=== PATIENT | male | born 1980 | race Caucasian/White ===

== ENCOUNTER 2024-03-06 20:04 | Inpatient (IN) ==
[~2024-03-06 20:04] MED LIST: KETAMINE HCL INJ 50 MG/ML 10 ML VIAL IV ONE; ROCURONIUM BROMIDE 10 MG/ML 5 ML VIAL IV ONE
[2024-03-06] MEDS ORDERED: MIDAZOLAM HCL 5 MG/ML 1 ML VIAL IV STA (20:08)
[2024-03-06] MEDS: propofoL 1,000 MG/100 ML VIAL IV SCH (20:22)
[2024-03-06] MEDS: STAT IV Infusion **Titration per Protocol STA (20:25)
[2024-03-06] MEDS: RAPID SEQUENCE INDUCTION BAG ONE (20:25)
[2024-03-06] MEDS: MIDAZOLAM HCL 5 MG/ML 2ML VIAL IV STA (20:28)
[2024-03-06] MEDS: SODIUM CHLORIDE 0.9% 1,000 ML IV ONE (20:28)
[2024-03-06] MEDS: ONDANSETRON INJ 2 MG/ML 2 ML VIAL IV STA (20:28)
--- NOTE | 2024-03-06 20:31 | Emergency Department Note ---
Impression & Plan Acute alteration in mental status, Alcoholic intoxication, Acute respiratory distress, Vomiting ED Provider Note NAME: KRISTIN TUCKER AGE: 44 SEX: M : 1980 ARRIVES VIA: Ambulance INFORMANT: ALS ED PROVIDER(S): Guzman Archuleta DO CHIEF COMPLAINT: Altered mental status HPI: The patient is a 44-year-old male who presented to the emergency department for altered mental status. The patient reportedly was drinking alcohol for the last 2 days straight. He is also been using Ambien as well as stimulants. He was found obtunded. He vomited an unknown amount of times. The patient was hypoxic. The patient was placed on supplemental oxygen prior to arrival. The patient is unable to give any history at this time. The patient arrived to the emergency department by himself. ROS: See above HPI for pertinent positives & negatives. ROS was unable to obtain due to the patient's mental status. PAST MEDICAL HISTORY: See Below PAST SURGICAL HISTORY: See Below FAMILY HISTORY: See Below SOCIAL HISTORY: See Below HOME MEDICATIONS: See Below ALLERGIES: See Below VITALS: See Below PHYSICAL EXAMINATION: GENERAL: Patient is obtunded. He did not respond to verbal commands. EYES: The conjunctiva are injected bilaterally. Pupils are constricted bilaterally. EARS, NOSE, MOUTH AND THROAT: The nose is without any evidence of any deformity NECK: The neck is nontender and supple. RESPIRATORY: Shallow respirations are noted bilaterally. Scattered rhonchi were noted throughout. CARDIOVASCULAR: Tachycardic and regular heart sounds were noted to auscultation. GASTROINTESTINAL: The abdomen is soft. Abdomen is nontender. MUSCULOSKELETAL/EXTREMITIES: There is no evidence of gross deformity full range of motion is noted in the hips and shoulders. SKIN: There is no obvious evidence of any rash. There are no petechiae, pallor or cyanosis noted. NEUROLOGIC: The patient response to painful stimuli. The patient appears to be moving extremities but he does not follow commands at all. MEDICAL DECISION MAKING: The patient is a 44-year-old male who presented to the emergency department for altered mental status. The patient reportedly was drinking significant amounts of alcohol as well as using Ambien. There was a report that he might of been using stimulants as well. The patient arrived at the emergency department obtunded. He was vomiting. There is concern for airway protection. The patient was intubated in the emergency department in usual fashion. The patient was reevaluated multiple times. He was placed on sedation. I discussed his condition with the ICU as well as the on-call [facility]. They have agreed to evaluate the patient in the emergency department. Chest x-ray did not appear to be consistent with infiltrate or aspiration. Triage Nursing notes reviewed. Prior medical records reviewed Vital Signs: reviewed and remarkable for tachycardia and hypertension. Differential diagnosis: Infection, hypoglycemia, electrolyte abnormalities, overdose, toxicologic, cardiac sources, intracerebral event, neurologic, trauma, as well as other pathologies. ER treatment provided: See below Diagnostics interpreted by me: ECG: EKG was obtained in the emergency department. My interpretation is sinus tachycardia at 160 bpm. There is no PVCs noted. Nonspecific ST segment depressions were noted. No previous tracing was available. Cardiac Monitoring: An order was placed for continuous cardiac monitoring. The monitor shows a rate of 122 bpm with sinus tachycardia. Laboratory studies: As stated above and show below. Imaging studies: See below. Radiographic imaging was reviewed by myself Consultation(s): I discussed this case with Oscar who is on-call for the ICU. I discussed this case with Dr. Melchor who is on-call for the [facility] group. ED COURSE: Procedures: Endotracheal Intubation Indication altered mental status and airway protection. The patient was on 100% oxygen via NRB prior to the procedure. Suction, airway equipment, RSI drugs, respiratory equipment, and appropriate personnel were prepared prior to the initiation of the procedure. A time out was taken. Induction was performed with ketamine and rocuronium. After observing the clinical benefit of the medications, the airway was easily visualized utilizing a glide scope. A 7.5 size ETT tube was placed atraumatically to 24 cm using standard technique. The cuff inflated without signs of malfunction. There were bilateral breath sounds, positive colormetric change, no gastric sounds, a good capnography waveform, and post procedure pulse oximetry was 99%. Post intubation sedation and paralysis was administered using propofol. There were no complications. Critical Care: I have personally spent greater than 45 minutes of critical care time in the direct management of this patient. This includes bedside care, interpretation of diagnostic studies, and testing, discussion with consultants, patient, and family members, and other required patient management activities. This 45 minutes is in excess of all separately billable procedures. Past Med/Surg History Problem List (Updated 03/07/24 @ 00:32 by ERIC العلي) On mechanically assisted ventilation Vomiting (Acute) Acute respiratory distress (Acute) Alcoholic intoxication (Acute) Acute alteration in mental status (Acute) Social History Smoking Status: Unknown if ever smoked Second Hand Exposure: No; Do You Dip or Chew Tobacco: No; Tobacco Cessation Education Requested by Patient: No (pt intubated) Hx Alcohol Use: Yes Alcohol type: beer Hx Substance Use: No Preferred Language: Occitan Communication Ability: Effective Lacquer Sprayer Required: No Beliefs That Will Affect Care: None Current Living Situation: Other Current Living Situation Comment: pt unable to answer Other Information That Helps Us Care for You: No Feels Safe at Home: Yes Safety Concerns: Feels Safe At This Time Assistive Devices: None Allergies Allergies Allergy/AdvReac Type Severity Reaction Status Date / Time Unable to Assess Allergy Unverified 03/07/24 00:12 Home Meds Home Medications Medication Instructions Recorded Confirmed Unobtainable 03/06/24 03/06/24 Results & Data (ED) Vital Signs Vital Signs - 24 hr 03/06/24 20:08 03/06/24 20:09 03/06/24 20:13 Temperature 36.9 C Temperature Source Oral Pulse Rate 101 H 108 H 101 H Pulse Rate from SpO2 Sensor 107 H Pulse Rhythm Regular Pulse Strength Normal Respiratory Rate 16 18 Respiratory Effort / Characteristics Non-Labored Spontaneous Respiratory Depth Normal Respiratory Pattern Regular Blood Pressure 124/81 124/81 Blood Pressure Mean 95 95 Blood Pressure Position Lying Pulse Oximetry 99 99 Oxygen Delivery Method Nasal Cannula Nasal Cannula Oxygen Flow Rate 4 4 Fraction of Inspired Oxygen SaO2/FiO2 Ratio Sepsis Recent Fever Within 48 Hours No Sepsis New/Unexplained Change in Mental Status N/A Sepsis Action Taken by Nursing No Action Required End-Tidal CO2 Oxygen Flow Rate - Titration Pulse Oximetry Post Tiitration 03/06/24 20:16 03/06/24 20:16 03/06/24 20:18 Temperature Temperature Source Pulse Rate 118 H Pulse Rate from SpO2 Sensor 118 H Pulse Rhythm Pulse Strength Respiratory Rate 18 Respiratory Effort / Characteristics Respiratory Depth Respiratory Pattern Blood Pressure 166/132 H Blood Pressure Mean 143 Blood Pressure Position Pulse Oximetry 94 96 93 Oxygen Delivery Method Non-rebreather Nasal Cannula Non-rebreather Oxygen Flow Rate 15 4 Fraction of Inspired Oxygen SaO2/FiO2 Ratio Sepsis Recent Fever Within 48 Hours Sepsis New/Unexplained Change in Mental Status Sepsis Action Taken by Nursing End-Tidal CO2 Oxygen Flow Rate - Titration 15 Pulse Oximetry Post Tiitration 97 03/06/24 20:18 03/06/24 20:27 03/06/24 20:29 Temperature Temperature Source Pulse Rate 155 H 146 H 111 H Pulse Rate from SpO2 Sensor 155 H 146 H Pulse Rhythm Regular Pulse Strength Respiratory Rate 20 18 Respiratory Effort / Characteristics Respiratory Depth Respiratory Pattern Blood Pressure 210/136 H Blood Pressure Mean 160 Blood Pressure Position Pulse Oximetry 96 96 95 Oxygen Delivery Method Ambu-Bag Mechanical Vent Mechanical Vent Oxygen Flow Rate Fraction of Inspired Oxygen 50 50 SaO2/FiO2 Ratio 190 Sepsis Recent Fever Within 48 Hours Sepsis New/Unexplained Change in Mental Status Sepsis Action Taken by Nursing End-Tidal CO2 Oxygen Flow Rate - Titration Pulse Oximetry Post Tiitration 03/06/24 20:30 03/06/24 20:36 03/06/24 20:36 Temperature Temperature Source Pulse Rate 110 H 146 H 107 H Pulse Rate from SpO2 Sensor 110 H 107 H Pulse Rhythm Pulse Strength Respiratory Rate 18 22 18 Respiratory Effort / Characteristics Respiratory Depth Respiratory Pattern Blood Pressure 145/107 H 138/99 Blood Pressure Mean 119 112 Blood Pressure Position Pulse Oximetry 95 96 95 Oxygen Delivery Method Mechanical Vent Mechanical Vent Oxygen Flow Rate Fraction of Inspired Oxygen 50 50 50 SaO2/FiO2 Ratio Sepsis Recent Fever Within 48 Hours Sepsis New/Unexplained Change in Mental Status Sepsis Action Taken by Nursing End-Tidal CO2 40 41 40 Oxygen Flow Rate - Titration Pulse Oximetry Post Tiitration 03/06/24 20:50 03/06/24 21:00 03/06/24 21:10 Temperature Temperature Source Pulse Rate 99 H 102 H 95 H Pulse Rate from SpO2 Sensor 98 H 102 H 95 H Pulse Rhythm Pulse Strength Respiratory Rate 18 18 18 Respiratory Effort / Characteristics Respiratory Depth Respiratory Pattern Blood Pressure 141/103 H 153/103 H 151/100 H Blood Pressure Mean 115 119 117 Blood Pressure Position Pulse Oximetry 96 95 98 Oxygen Delivery Method Mechanical Vent Mechanical Vent Mechanical Vent Oxygen Flow Rate Fraction of Inspired Oxygen 50 50 50 SaO2/FiO2 Ratio Sepsis Recent Fever Within 48 Hours Sepsis New/Unexplained Change in Mental Status Sepsis Action Taken by Nursing End-Tidal CO2 43 40 44 Oxygen Flow Rate - Titration Pulse Oximetry Post Tiitration 03/06/24 21:21 03/06/24 21:30 03/06/24 21:40 Temperature Temperature Source Pulse Rate 94 H 98 H 100 H Pulse Rate from SpO2 Sensor 95 H 99 H 100 H Pulse Rhythm Pulse Strength Respiratory Rate 18 18 18 Respiratory Effort / Characteristics Respiratory Depth Respiratory Pattern Blood Pressure 150/100 H 153/109 H Blood Pressure Mean 116 123 Blood Pressure Position Pulse Oximetry 98 97 95 Oxygen Delivery Method Mechanical Vent Mechanical Vent Mechanical Vent Oxygen Flow Rate Fraction of Inspired Oxygen 50 50 50 SaO2/FiO2 Ratio Sepsis Recent Fever Within 48 Hours Sepsis New/Unexplained Change in Mental Status Sepsis Action Taken by Nursing End-Tidal CO2 45 47 46 Oxygen Flow Rate - Titration Pulse Oximetry Post Tiitration 03/06/24 21:42 03/06/24 21:50 03/06/24 22:00 Temperature Temperature Source Pulse Rate 108 H 92 H 93 H Pulse Rate from SpO2 Sensor 108 H 92 H 93 H Pulse Rhythm Pulse Strength Respiratory Rate 21 18 18 Respiratory Effort / Characteristics Respiratory Depth Respiratory Pattern Blood Pressure 128/83 120/81 Blood Pressure Mean 98 94 Blood Pressure Position Pulse Oximetry 97 96 95 Oxygen Delivery Method Mechanical Vent Mechanical Vent Mechanical Vent Oxygen Flow Rate Fraction of Inspired Oxygen 50 50 50 SaO2/FiO2 Ratio Sepsis Recent Fever Within 48 Hours Sepsis New/Unexplained Change in Mental Status Sepsis Action Taken by Nursing End-Tidal CO2 46 44 43 Oxygen Flow Rate - Titration Pulse Oximetry Post Tiitration 03/06/24 22:00 03/06/24 22:10 03/06/24 22:15 Temperature Temperature Source Pulse Rate 93 H 90 91 H Pulse Rate from SpO2 Sensor 93 H 90 91 H Pulse Rhythm Pulse Strength Respiratory Rate 18 18 18 Respiratory Effort / Characteristics Respiratory Depth Respiratory Pattern Blood Pressure 120/80 Blood Pressure Mean 93 Blood Pressure Position Pulse Oximetry 95 94 94 Oxygen Delivery Method Mechanical Vent Mechanical Vent Mechanical Vent Oxygen Flow Rate Fraction of Inspired Oxygen 50 50 50 SaO2/FiO2 Ratio Sepsis Recent Fever Within 48 Hours Sepsis New/Unexplained Change in Mental Status Sepsis Action Taken by Nursing End-Tidal CO2 43 42 42 Oxygen Flow Rate - Titration Pulse Oximetry Post Tiitration 03/06/24 22:21 03/06/24 22:30 Temperature Temperature Source Pulse Rate 91 H 90 Pulse Rate from SpO2 Sensor 91 H 90 Pulse Rhythm Pulse Strength Respiratory Rate 18 18 Respiratory Effort / Characteristics Respiratory Depth Respiratory Pattern Blood Pressure 114/81 120/80 Blood Pressure Mean 92 93 Blood Pressure Position Pulse Oximetry 94 95 Oxygen Delivery Method Mechanical Vent Mechanical Vent Oxygen Flow Rate Fraction of Inspired Oxygen 50 50 SaO2/FiO2 Ratio Sepsis Recent Fever Within 48 Hours Sepsis New/Unexplained Change in Mental Status Sepsis Action Taken by Nursing End-Tidal CO2 41 41 Oxygen Flow Rate - Titration Pulse Oximetry Post Tiitration Home Medications Current Medication List: was personally reviewed by me Laboratory Data Attestation: I reviewed the patient's lab results. 03/06/24 20:09 03/06/24 20:09 Lab Results 03/06/24 03/06/24 03/06/24 Range/Units 20:09 20:38 21:29 WBC 7.95 (4.8-10.8) K/ul RBC 5.85 (4.70-6.10) M/uL Hgb 17.9 (14.0-18.0) g/dl Hct 49.7 (42.0-52.0) % MCV 85.0 (80.0-100.0) fL MCH 30.6 (25.0-34.0) pg MCHC 36.0 (32.0-36.0) g/dL RDW Std Deviation 35.9 L (36.4-46.3) fL RDW Coeff of Guido 11.7 (11.5-14.5) % Plt Count 252 (130-400) K/uL MPV 10.2 (9.4-12.4) fL Immature Gran % (Auto) 0.8 % Neut % (Auto) 45.3 % Lymph % (Auto) 44.7 % [place] % (Auto) 6.7 % Eos % (Auto) 1.6 % Baso % (Auto) 0.9 % Neut # (Auto) 3.61 (1.40-6.50) K/uL Lymph # (Auto) 3.55 H (1.20-3.40) K/uL [place] # (Auto) 0.53 (0.11-0.59) K/uL Eos # (Auto) 0.13 (0.00-0.50) K/uL Baso # (Auto) 0.07 (0.00-0.20) K/uL Immature Gran # (Auto) 0.06 (0.01-0.20) K/uL PT 10.5 (9.0-12.0) Seconds INR 1.0 (0.9-1.1) APTT 21 (21-31) Seconds PTT Ratio 0.8 VBG pH Cancelled 7.32 L VBG pCO2 Cancelled 57 H VBG pO2 Cancelled 35 VBG HCO3 Cancelled 29 VBG O2 Saturation Cancelled < 60.0 VBG Base Excess Cancelled 2.0 Barometric Pressure Cancelled Sodium 142 (136-145) mmol/L Potassium 3.7 (3.5-5.1) mmol/L Chloride 104 (98-107) mmol/L Carbon Dioxide 27 (21-32) mmol/L Anion Gap 11 (3-11) BUN 10 (6-23) mg/dl Creatinine 0.95 (0.6-1.4) mg/dl Est Cr Clr Drug Dosing 124.4 ml/min eGFR 101.85 BUN/Creatinine Ratio 10.5 (10-20) Glucose 117 H (70-99(Fasting)) mg/dl Calcium 9.7 (8.6-10.3) mg/dl Magnesium 2.1 (1.7-2.4) mg/dl Total Bilirubin 0.4 (0.2-1.0) mg/dl AST 28 (13-39) U/L ALT 26 (7-52) U/L Alkaline Phosphatase 68 (34-104) U/L Total Creatine Kinase 322 H (30-223) U/L Troponin I High Sens 4.0 (0-20) pg/ml Total Protein 7.5 (6.0-8.3) gm/dl Albumin 4.9 (3.4-5.0) gm/dl Globulin 2.6 (2.5-4.0) gm/dl Albumin/Globulin Ratio 1.9 (0.9-2) Lipase 37 (11-82) U/L Urine Color Yellow Urine Appearance Clear (Clear) Urine pH 5.5 (4.5-7.5) Ur Specific [place] 1.006 (1.000-1.030) Urine Protein Negative (Negative) Urine Glucose (UA) Negative (Negative) Urine Ketones Negative (Negative) Urine Blood Negative (Negative) Urine Nitrite Negative (Negative) Urine Bilirubin Negative (Negative) Urine Urobilinogen Negative (Negative) Ur Leukocyte Esterase Negative (Negative) Salicylates < 3.0 L (3.0-30) mg/dl Urine Opiates Screen Neg (Neg) Ur Methadone, Qual Neg (Neg) Urine Fentanyl Screen Neg (Neg) Acetaminophen < 3 L (10-30) ug/ml Urine Barbiturates Neg (Neg) Ur Phencyclidine (PCP) Neg (Neg) U Amphetamin/Meth Scrn Neg (Neg) MDMA (Ecstasy) Screen Neg (Neg) U Benzodiazepines Scrn Neg (Neg) Ur Cocaine Metabolite Neg (Neg) U Marijuana (THC) Screen Neg (Neg) Ethyl Alcohol mg/dL 343.3 H (<10.0) mg/dl Administered Medications Propofol (Diprivan) 1,000 mg in 100 mls @ 26.352 mls/hr IV .Q3H48M [facility]; Protocol Stop: 03/09/24 20:14 Last Titration: 03/07/24 00:32 Dose: 40 mcg/kg/min, 26.4 mls/hr Documented By: Titration: 03/07/24 00:16 Dose: 35 mcg/kg/min, 23.1 mls/hr Documented By: Admin: 03/07/24 00:10 Dose: 30 mcg/kg/min, 19.8 mls/hr Documented By: DEBBIE Co-signed By: SANDY Titration: 03/07/24 00:10 Dose: Infused Documented By: DEBBIE Co-signed By: SANDY Titration: 03/07/24 00:07 Dose: 30 mcg/kg/min, 19.8 mls/hr Documented By: Titration: 03/06/24 21:20 Dose: 25 mcg/kg/min, 16.5 mls/hr Documented By: Admin: 03/06/24 20:22 Dose: 20 mcg/kg/min, 13.2 mls/hr Documented By: DESTIN Co-signed By: BARBARA Lactated Ringer's (Lr) 1,000 mls @ 80 mls/hr IV .[id number] ONE Stop: 03/07/24 11:34 Last Admin: 03/06/24 23:30 Dose: 80 mls/hr Documented By: DESTIN Miscellaneous (Icu Protocol For Hyperglycemia) 1 each N/A Q6 [facility] Stop: 03/09/24 00:00 Last Admin: 03/07/24 00:32 Dose: 1 each Documented By: DEBBIE Propofol (Propofol Bolus From Bag) 20 mg IV Q5M PRN PRN Reason: Sedation Stop: 03/09/24 20:07 Last Admin: 03/06/24 21:39 Dose: 20 mg Documented By: DESTNI Co-signed By: GARY Admin: 03/06/24 21:19 Dose: 20 mg Documented By: DESTIN Co-signed By: CESARIO Admin: 03/06/24 20:46 Dose: 20 mg Documented By: DESTIN Co-signed By: CESARIO Discontinued Medications Fentanyl Citrate (Fentanyl Citrate Pf 100 Mcg/2 Ml Vial) 100 mcg IV NOW STA Stop: 03/06/24 21:35 Last Admin: 03/06/24 21:42 Dose: 100 mcg Documented By: DESTIN Sodium Chloride (Nss) 1,000 mls @ 999 mls/hr IV .Q1H1M ONE Stop: 03/06/24 21:08 Last Infusion: 03/06/24 21:30 Dose: Infused Documented By: Admin: 03/06/24 20:28 Dose: 999 mls/hr Documented By: DESTIN Ampicillin Sodium/Sulbactam Sodium (Unasyn) 3,000 mg in 100 mls @ 200 mls/hr IV NOW STA Stop: 03/06/24 22:26 Last Infusion: 03/06/24 22:56 Dose: Infused Documented By: Admin: 03/06/24 22:23 Dose: 200 mls/hr Documented By: DESTIN Thiamine HCl 100 mg/ Syringe 10 mls @ 2 mls/min IV NOW STA Stop: 03/06/24 22:06 Last Admin: 03/06/24 22:20 Dose: 2 mls/min Documented By: DESTIN Midazolam HCl (Midazolam Hcl 5 Mg/Ml 2ml Vial) 4 mg IV NOW STA Stop: 03/06/24 20:23 Last Admin: 03/06/24 20:28 Dose: 4 mg Documented By: DESTIN Midazolam HCl (Midazolam Hcl 5 Mg/Ml 1 Ml Vial) 4 mg IV NOW STA Stop: 03/06/24 21:35 Last Admin: 03/06/24 21:40 Dose: 4 mg Documented By: DESTIN Mccallum (Rapid Sequence Induction Bag) Confirm Administered Dose 1 each N/A .STK-MED ONE Stop: 03/06/24 20:01 Last Admin: 03/06/24 20:25 Dose: 1 each Documented By: DESTIN Mccallum (Stat Iv Infusion Titration Per Protocol) 1 each N/A NOW STA Stop: 03/06/24 20:09 Last Admin: 03/06/24 20:25 Dose: 1 each Documented By: DESTIN Ondansetron HCl (Ondansetron Inj 2 Mg/Ml 2 Ml Vial) 4 mg IV NOW STA Stop: 03/06/24 20:09 Last Admin: 03/06/24 20:28 Dose: Not Given Documented By: DESTIN Imaging Data Attestation: I personally reviewed and interpreted this imaging study as follows: My Impression: 1 view chest x-ray was obtained in the emergency department. My interpretation is no free air or definite infiltrate, endotracheal tube was in proper position, final report below. CT the brain was obtained in the emergency department. My interpretation is no intracranial hemorrhage or mass effect, final report below. Radiologist's Impression: Chest X-Ray 03/06/24 20:08 Exam(s): XR CXR 1 VIEW EXAM: XR Chest, 1 View CLINICAL HISTORY: Reason for exam: ams. TECHNIQUE: Frontal view of the chest. COMPARISON: No relevant prior studies available. FINDINGS: There is an endotracheal tube in place approximately 6 cm above the nico. There is an NG tube overlying the esophagus with the distal tip in the cardia of the stomach. Lungs: Mild to moderate peribronchial thickening of the central and lower lobe bronchi with increased interstitial opacities. No consolidation. Pleural space: Unremarkable. No pneumothorax. Heart: Cardiomegaly. Mediastinum: Unremarkable. Normal mediastinal contour. Bones/joints: Unremarkable. No acute fracture. IMPRESSION: Findings concerning for bronchitis with pneumonitis, which may be of infectious or inflammatory etiologies. No consolidation or pleural effusion. Cardiomegaly without evidence of CHF. Tubes and lines as above. Electronically signed by: Shreya Scruggs MD 03/07/24 00:[address] 03/06/24 20:08 Exam(s): CT HEAD Without Contrast EXAM: CT Head Without Intravenous Contrast CLINICAL HISTORY: Reason for exam: ams. TECHNIQUE: Axial computed tomography images of the head/brain without intravenous contrast. CTDI is 36 mGy and DLP is 624 mGy-cm. Automated exposure control was utilized for the study. A dose lowering technique was utilized adhering to the principles of ALARA. COMPARISON: No relevant prior studies available. FINDINGS: Brain: Unremarkable. No hemorrhage. No significant white matter disease. No edema. Ventricles: Unremarkable. No ventriculomegaly. Bones/joints: Unremarkable. No acute fracture. Soft tissues: Unremarkable. Sinuses: Unremarkable as visualized. No acute sinusitis. Mastoid air cells: Unremarkable as visualized. No mastoid effusion. IMPRESSION: No evidence of acute intracranial pathology. Electronically signed by: Shreya Scruggs MD 03/06/24 23:32 PM Discharge Plan Visit Data Chief Complaint: Alcohol Intoxication Stated Complaint: ALCOHOL OVERDOSE, UNRESPONSIVE ED Provider: Guzman Archuleta Discharge Problem: Acute alteration in mental status, Alcoholic intoxication, Acute respiratory distress, Vomiting Patient Disposition: Admitted As Inpatient Discharge Instructions Interventions: ED Discharge Assessment Last Done: 03/06/24 22:54 Discharge Problem: Alcoholic intoxication Qualifiers: Complication of substance-induced condition: with unspecified complication Q ualified Code(s): F10.929 - Alcohol use, unspecified with intoxication, unspecified Vomiting Qualifiers: Vomiting type: unspecified Nausea presence: unspecified Qualified Code(s): R 11.10 - Vomiting, unspecified
[2024-03-06] MEDS: PROPOFOL BOLUS FROM BAG IV PRN (20:46)
[2024-03-06 21:02] LABS: Appearance Urine Clear (Clear); Bilirubin Urine Negative (Negative); Blood Urine Negative (Negative); Color Urine Yellow; Glucose Urine UA Negative (Negative); Ketones Urine Negative (Negative); Leukocyte Esterase Urine Negative (Negative); Nitrite Urine Negative (Negative); Protein Urine Negative (Negative); Specific Gravity Urine 1.006 (1.000-1.030); Urobilinogen Urine Negative (Negative); pH Urine 5.5 (4.5-7.5)
[2024-03-06 21:17] LABS: Albumin Globulin Ratio 1.9 (0.9-2); Albumin Level 4.9 gm/dl (3.4-5.0); BUN Creatinine Ratio 10.5 (10-20); Bilirubin,Total 0.4 mg/dl (0.2-1.0); Calcium 9.7 mg/dl (8.6-10.3); Creatinine Clr Calc Pharmacy 124.4 ml/min; Globulin 2.6 gm/dl (2.5-4.0); Magnesium 2.1 mg/dl (1.7-2.4); Potassium 3.7 mmol/L (3.5-5.1); Total Protein 7.5 gm/dl (6.0-8.3)
[2024-03-06 21:21] LABS: Basophils # (auto) 0.07 K/uL (0.00-0.20); Basophils % (auto) 0.9 %; Eosinophils # (auto) 0.13 K/uL (0.00-0.50); Eosinophils % (auto) 1.6 %; Hematocrit (blood only) 49.7 % (42.0-52.0); Hemoglobin 17.9 g/dl (14.0-18.0); Immature Granulocytes # (auto) 0.06 K/uL (0.01-0.20); Immature Granulocytes % (auto) 0.8 %; Lymphocytes # (auto) 3.55 K/uL (1.20-3.40); Lymphocytes % (auto) 44.7 %; Mean Corpuscular Hemoglobin 30.6 pg (25.0-34.0); Mean Platelet Volume 10.2 fL (9.4-12.4); Monocytes # (auto) 0.53 K/uL (0.11-0.59); Monocytes % (auto) 6.7 %; Neutrophils # (auto) 3.61 K/uL (1.40-6.50); Neutrophils % (auto) 45.3 %; Platelet Count 252 K/uL (130-400); RDW Coefficient of Variation 11.7 % (11.5-14.5); RDW Standard Deviation 35.9 fL (36.4-46.3); Red Blood Count 5.85 M/uL (4.70-6.10); White Blood Count 7.95 K/ul (4.8-10.8)
[2024-03-06 21:26] LABS: Acetaminophen < 3 ug/ml (10-30); Salicylate < 3.0 mg/dl (3.0-30)
[2024-03-06 21:29] LABS: Partial Thromboplastin Ratio 0.8; Partial Thromboplastin Time 21 Seconds (21-31); Prothrombin Time 10.5 Seconds (9.0-12.0)
[2024-03-06] MEDS: MIDAZOLAM HCL 5 MG/ML 1 ML VIAL IV STA (21:40)
[2024-03-06] MEDS: fentaNYL citrate PF 100 MCG/2 ML VIAL IV STA (21:42)
[2024-03-06 21:53] LABS: HCO3 VBG 29 mmol/L; Oxygen Saturation VBG < 60.0 %; PCO2 VBG 57 mmHg (38-50); PO2 VBG 35 mmHg; pH VBG 7.32 (7.36-7.41)
[2024-03-06 22:06] LABS: Amphetamines+Metham, Urine Neg (Neg); Barbiturates, Urine Neg (Neg); Benzodiazepine, Urine Neg (Neg); Cocaine, Urine Neg (Neg); Fentanyl, Urine Neg (Neg); MDMA (Ecstacy), Urine Neg (Neg); Marijuana, Urine Neg (Neg); Methadone, Urine Neg (Neg); Opiate, Urine Neg (Neg); Phencyclidine, Urine Neg (Neg)
[2024-03-06] MEDS: THIAMINE HCL 100 MG in SYRINGE 9 ML IV STA (22:20)
[2024-03-06] MEDS: AMPICILLIN/SULBACTAM SOD 3,000 MG/100 ML BAG IV STA (22:23)
--- NOTE | 2024-03-06 22:28 | History & Physical Report ---
Date of Service March 06, 2024 Assessment & Plan (1) Respiratory failure with hypercapnia: Plan: Multifactorial: Alcohol intoxication Possible aspiration pneumonitis Hyperglycemia rule out DM ICU Vent management Recheck VBG Unasyn for aspiration pneumonitis DVT prophylaxis. Lovenox subcu GI prophylaxis. H2 sunday while on the vent Full code Patient friend requesting updates from providers. Mr. Vahid Gonzales, contact #[phone]. Patient friend does not have contact information for patient's family. Patient was scheduled to fly out from [facility] to return to [facility] tomorrow afternoon. Total critical care time was 40 minutes. Text document was generated using Edam[employer] voice recognition software. It may contain grammatical or spelling errors. Kindly contact undersigned for clarification of any documentation item in question. History of Present Illness Chief Complaint: Altered mental status Primary Care Provider: NO PCP History obtained from ED provider, patient friend, and records. Limited history from patient secondary to intubated state. Patient is a resident of [facility] who is in town this weekend with friends to watch the football game. Patient has been drinking a lot of alcohol with his buddies since arriving in [facility] yesterday. Patient friend unaware of alcohol abuse history. Reported Ambien and stimulant use. Tonight, patient noted to be obtunded. Subsequent emesis and hypoxemia. Patient brought to ER for evaluation. Transient hypoxemia with concern for aspiration as per ED provider Patient subsequently intubated. 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 Allergies Allergy/AdvReac Type Severity Reaction Status Date / Time Unable to Assess Allergy Unverified 03/07/24 00:12 Home Medications Medication Instructions Recorded Confirmed Type Unobtainable 03/06/24 03/06/24 History Past Med/Surg History Problem List (Updated 03/07/24 @ 03:16 by Seth Berger MD) Respiratory failure with hypercapnia On mechanically assisted ventilation Vomiting (Acute) Acute respiratory distress (Acute) Alcoholic intoxication (Acute) Acute alteration in mental status (Acute) Social History Smoking Status: Unknown if ever smoked Second Hand Exposure: No; Do You Dip or Chew Tobacco: No; Tobacco Cessation Education Requested by Patient: No (pt intubated) Hx Alcohol Use: Yes Alcohol type: beer Hx Substance Use: No Preferred Language: Faroese Communication Ability: Effective Access Rn Required: No Beliefs That Will Affect Care: None Current Living Situation: Other Current Living Situation Comment: pt unable to answer Other Information That Helps Us Care for You: No Feels Safe at Home: Yes Safety Concerns: Feels Safe At This Time Assistive Devices: None Review of Systems Review of Systems: Could not be reliably obtained secondary to intubated state Physical Exam Physical Exam: GENERAL: Sedated, intubated, obese, no respiratory distress SKIN: Normal color, warm HEENT: Alopecia, pink palpebral conjunctivae, no ptosis, dry buccal mucosa, ET in place NECK : Supple, no tenderness CHEST : Decreased breath sounds, no tenderness HEART : RRR, no obvious murmurs ABDOMEN: Some distention, nontender EXTREMITIES : No LE swelling/tenderness, no other conspicuous deformities noted NEUROLOGIC : Sedated, no facial asymmetry, no other gross focality Results & Data Results & Data Vital Signs (Past 12 Hours) Vital Signs Temp Pulse Resp BP Pulse Ox O2 Del Method O2 Flow Rate 03/06/24 22:15 91 H 18 94 Mechanical Vent 03/06/24 22:10 90 18 120/80 94 Mechanical Vent 03/06/24 22:00 93 H 18 95 Mechanical Vent 03/06/24 22:00 93 H 18 120/81 95 Mechanical Vent 03/06/24 21:50 92 H 18 128/83 96 Mechanical Vent 03/06/24 21:42 108 H 21 97 Mechanical Vent 03/06/24 21:40 100 H 18 153/109 H 95 Mechanical Vent 03/06/24 21:30 98 H 18 150/100 H 97 Mechanical Vent 03/06/24 21:21 94 H 18 98 Mechanical Vent 03/06/24 21:10 95 H 18 151/100 H 98 Mechanical Vent 03/06/24 21:00 102 H 18 153/103 H 95 Mechanical Vent 03/06/24 20:50 99 H 18 141/103 H 96 Mechanical Vent 03/06/24 20:36 107 H 18 138/99 95 Mechanical Vent 03/06/24 20:36 146 H 22 96 03/06/24 20:30 110 H 18 145/107 H 95 Mechanical Vent 03/06/24 20:29 111 H 18 95 Mechanical Vent 03/06/24 20:27 146 H 96 Mechanical Vent 03/06/24 20:18 155 H 20 210/136 H 96 Ambu-Bag 03/06/24 20:18 93 Nasal Cannula, Non-rebreather 4 03/06/24 20:16 118 H 18 166/132 H 96 Non-rebreather 15 03/06/24 20:16 94 03/06/24 20:13 101 H 03/06/24 20:09 108 H 18 124/81 99 Nasal Cannula 4 03/06/24 20:08 36.9 C 101 H 16 124/81 99 Nasal Cannula 4 FiO2 03/06/24 22:15 50 03/06/24 22:10 50 03/06/24 22:00 50 03/06/24 22:00 50 03/06/24 21:50 50 03/06/24 21:42 50 03/06/24 21:40 50 03/06/24 21:30 50 03/06/24 21:21 50 03/06/24 21:10 50 03/06/24 21:00 50 03/06/24 20:50 50 03/06/24 20:36 50 03/06/24 20:36 50 03/06/24 20:30 50 03/06/24 20:29 50 03/06/24 20:27 50 03/06/24 20:18 03/06/24 20:18 03/06/24 20:16 03/06/24 20:16 03/06/24 20:13 03/06/24 20:09 03/06/24 20:08 Laboratory Results Laboratory Results WBC 7.95 K/ul (4.8-10.8) 03/06/24 20:09 RBC 5.85 M/uL (4.70-6.10) 03/06/24 20:09 Hgb 17.9 g/dl (14.0-18.0) 03/06/24 20:09 Hct 49.7 % (42.0-52.0) 03/06/24 20:09 MCV 85.0 fL (80.0-100.0) 03/06/24 20:09 MCH 30.6 pg (25.0-34.0) 03/06/24 20:09 MCHC 36.0 g/dL (32.0-36.0) 03/06/24 20:09 RDW Std Deviation 35.9 fL (36.4-46.3) L 03/06/24 20: RDW Coeff of Guido 11.7 % (11.5-14.5) 03/06/24 20: Plt Count 252 K/uL (130-400) 03/06/24 20:09 MPV 10.2 fL (9.4-12.4) 03/06/24 20:09 Immature Gran % (Auto) 0.8 % 03/06/24 20: Neut % (Auto) 45.3 % 03/06/24 20:09 Lymph % (Auto) 44.7 % 03/06/24 20:09 [place] % (Auto) 6.7 % 03/06/24 20:09 Eos % (Auto) 1.6 % 03/06/24 20:09 Baso % (Auto) 0.9 % 03/06/24 20:09 Neut # (Auto) 3.61 K/uL (1.40-6.50) 03/06/24 20:09 Lymph # (Auto) 3.55 K/uL (1.20-3.40) H 03/06/24 20:09 [place] # (Auto) 0.53 K/uL (0.11-0.59) 03/06/24 20:09 Eos # (Auto) 0.13 K/uL (0.00-0.50) 03/06/24 20:09 Baso # (Auto) 0.07 K/uL (0.00-0.20) 03/06/24 20:09 Immature Gran # (Auto) 0.06 K/uL (0.01-0.20) 03/06/24 20:09 PT 10.5 Seconds (9.0-12.0) 03/06/24 20:09 INR 1.0 (0.9-1.1) 03/06/24 20: APTT 21 Seconds (21-31) 03/06/24 20: PTT Ratio 0.8 03/06/24 20:09 VBG pH 7.32 (7.36-7.41) L 03/06/24 21:29 VBG pCO2 57 mmHg (38-50) H 03/06/24 21:29 VBG pO2 35 mmHg 03/06/24 21:29 VBG HCO3 29 mmol/L 03/06/24 21:29 VBG O2 Saturation < 60.0 % 03/06/24 21:29 VBG Base Excess 2.0 mEq/L 03/06/24 21:29 Barometric Pressure Cancelled 03/06/24 20:38 Sodium 142 mmol/L (136-145) 03/06/24 20:09 Potassium 3.7 mmol/L (3.5-5.1) 03/06/24 20:09 Chloride 104 mmol/L (98-107) 03/06/24 20:09 Carbon Dioxide 27 mmol/L (21-32) 03/06/24 20:09 Anion Gap 11 (3-11) 03/06/24 20:09 BUN 10 mg/dl (6-23) 03/06/24 20:09 Creatinine 0.95 mg/dl (0.6-1.4) 03/06/24 20:09 Est Cr Clr Drug Dosing 124.4 ml/min 03/06/24 20:09 eGFR 101.85 03/06/24 20:09 BUN/Creatinine Ratio 10.5 (10-20) 03/06/24 20:09 Glucose 117 mg/dl (70-99(Fasting)) H 03/06/24 20:09 Calcium 9.7 mg/dl (8.6-10.3) 03/06/24 20:09 Magnesium 2.1 mg/dl (1.7-2.4) 03/06/24 20:09 Total Bilirubin 0.4 mg/dl (0.2-1.0) 03/06/24 20:09 AST 28 U/L (13-39) 03/06/24 20:09 ALT 26 U/L (7-52) 03/06/24 20:09 Alkaline Phosphatase 68 U/L (34-104) 03/06/24 20:09 Total Creatine Kinase 322 U/L (30-223) H 03/06/24 20:09 Troponin I High Sens 4.0 pg/ml (0-20) 03/06/24 20:09 Total Protein 7.5 gm/dl (6.0-8.3) 03/06/24 20:09 Albumin 4.9 gm/dl (3.4-5.0) 03/06/24 20:09 Globulin 2.6 gm/dl (2.5-4.0) 03/06/24 20:09 Albumin/Globulin Ratio 1.9 (0.9-2) 03/06/24 20:09 Lipase 37 U/L (11-82) 03/06/24 20:09 Urine Color Yellow 03/06/24 20:09 Urine Appearance Clear (Clear) 03/06/24 20:09 Urine pH 5.5 (4.5-7.5) 03/06/24 20:09 Ur Specific [place] 1.006 (1.000-1.030) 03/06/24 20:09 Urine Protein Negative (Negative) 03/06/24 20:09 Urine Glucose (UA) Negative (Negative) 03/06/24 20:09 Urine Ketones Negative (Negative) 03/06/24 20:09 Urine Blood Negative (Negative) 03/06/24 20:09 Urine Nitrite Negative (Negative) 03/06/24 20:09 Urine Bilirubin Negative (Negative) 03/06/24 20:09 Urine Urobilinogen Negative (Negative) 03/06/24 20:09 Ur Leukocyte Esterase Negative (Negative) 03/06/24 20:09 Salicylates < 3.0 mg/dl (3.0-30) L 03/06/24 20:09 Urine Opiates Screen Neg (Neg) 03/06/24 20:09 Ur Methadone, Qual Neg (Neg) 03/06/24 20:09 Urine Fentanyl Screen Neg (Neg) 03/06/24 20:09 Acetaminophen < 3 ug/ml (10-30) L 03/06/24 20:09 Urine Barbiturates Neg (Neg) 03/06/24 20:09 Ur Phencyclidine (PCP) Neg (Neg) 03/06/24 20:09 U Amphetamin/Meth Scrn Neg (Neg) 03/06/24 20:09 MDMA (Ecstasy) Screen Neg (Neg) 03/06/24 20:09 U Benzodiazepines Scrn Neg (Neg) 03/06/24 20:09 Ur Cocaine Metabolite Neg (Neg) 03/06/24 20:09 U Marijuana (THC) Screen Neg (Neg) 03/06/24 20:09 Ethyl Alcohol mg/dL 343.3 mg/dl (<10.0) H 03/06/24 20:09 Diagnostic Findings Chest x-ray as per my interpretation cardiomegaly, interstitial infiltrates EKG as per my interpretation : rate 160, sinus tachycardia, LAD, LAFB, upslop ing ST depression anterolateral leads
[2024-03-06] MEDS: LACTATED RINGER'S 1,000 ML IV ONE (23:30)
--- NOTE | 2024-03-06 23:33 | CT Scan Report ---
Exam(s): CT HEAD Without Contrast EXAM: CT Head Without Intravenous Contrast CLINICAL HISTORY: Reason for exam: ams. TECHNIQUE: Axial computed tomography images of the head/brain without intravenous contrast. CTDI is 36 mGy and DLP is 624 mGy-cm. Automated exposure control was utilized for the study. A dose lowering technique was utilized adhering to the principles of ALARA. COMPARISON: No relevant prior studies available. FINDINGS: Brain: Unremarkable. No hemorrhage. No significant white matter disease. No edema. Ventricles: Unremarkable. No ventriculomegaly. Bones/joints: Unremarkable. No acute fracture. Soft tissues: Unremarkable. Sinuses: Unremarkable as visualized. No acute sinusitis. Mastoid air cells: Unremarkable as visualized. No mastoid effusion. IMPRESSION: No evidence of acute intracranial pathology. Electronically signed by: Shreya Scurggs MD 03/06/24 23:32 PM
[2024-03-07 00:13] LABS: Base Excess VBG 3.8 mEq/L; HCO3 VBG 31 mmol/L; Oxygen Saturation VBG 61.3 %; PCO2 VBG 56 mmHg (38-50); PO2 VBG 65 mmHg; pH VBG 7.35 (7.36-7.41)
--- NOTE | 2024-03-07 00:26 | XRay Report ---
Exam(s): XR CXR 1 VIEW EXAM: XR Chest, 1 View CLINICAL HISTORY: Reason for exam: ams. TECHNIQUE: Frontal view of the chest. COMPARISON: No relevant prior studies available. FINDINGS: There is an endotracheal tube in place approximately 6 cm above the nico. There is an NG tube overlying the esophagus with the distal tip in the cardia of the stomach. Lungs: Mild to moderate peribronchial thickening of the central and lower lobe bronchi with increased interstitial opacities. No consolidation. Pleural space: Unremarkable. No pneumothorax. Heart: Cardiomegaly. Mediastinum: Unremarkable. Normal mediastinal contour. Bones/joints: Unremarkable. No acute fracture. IMPRESSION: Findings concerning for bronchitis with pneumonitis, which may be of infectious or inflammatory etiologies. No consolidation or pleural effusion. Cardiomegaly without evidence of CHF. Tubes and lines as above. Electronically signed by: Shreya Scruggs MD 03/07/24 00:25 AM
[2024-03-07] MEDS: ICU Protocol for HYPERglycemia SCH (00:32)
--- NOTE | 2024-03-07 00:32 | Critical Care Consultation ---
Date of Consultation March 06, 2024 Assessment & Plan (1) Alcoholic intoxication: Reason Critically Ill: 44-year-old male presents to the ICU following emergent intubation in the ER due to altered mental status and vomiting, with patient not protecting airway. Patient appears to be intoxicated with alcohol Neuro - AMSlikely due to alcohol intoxication. Patient was emergently intubated due to compromised airway. CT head negative for acute intracranial findings. UDS negative although EMS did report patient had possibly taken Ambien and stimulants throughout the day. Acetaminophen and salicylates negative. Will continue to monitor and continue with supportive care Cardiac - Currently hemodynamically stable, normal sinus rhythm. Continuous monitor on telemetry Respiratory - Mechanical ventilationdue to vomiting with compromised airway. Unsure if patient may have aspirated as he was reportedly hypoxic following intubation. No significant hypoxia or hypercapnia at this time. Will continue with mechanical ventilation until Patient becomes more arousable. Continuous end- tidal CO2 and pulse ox monitoring. Will obtain chest x-ray and ABG in a.m. GI - N.p.o. for now RENAL/LYTES - Creatinine within normal limits. Monitor routine BMPs and replete electrolytes as indicated Rhabdomyolysis Mild. Slightly elevated CPK, likely due to EtOH/possible drug ingestion. Continue with IV fluids and trend for now - Foleystrict I's and O's ENDO - Currently euglycemic. ICU hyperglycemic protocol HEME - H&H stable, monitor routine CBC ID - Continue with empiric Unasyn for pulmonary coverage following possible aspiration. Trend fever curve LINES/IV ACCESS - Peripheral IVs DVT PROPHYLAXIS - SCDs I have personally spent 42 minutes of critical care time in the direct management of this patient. This is a life/limb threatening event. This includes time spent evaluating patient, direct bedside care, chart review, placing orders, interpretation of diagnostic studies, discussion with consultants, patient, and family members, as well as other required patient management activities. This time is exclusive of all separately billable procedures, and teaching time and separate from and in addition to any other critical care service time. Thank you for allowing us to participate in the care of this patient. Please refer to my attending physician's documentation for any further recommendations. (2) Acute respiratory distress: (3) Acute alteration in mental status: (4) On mechanically assisted ventilation: History of Present Illness Attending Physician: Liudmila Araya MD History of Present Illness Patient is a 44-year-old male who presented to the emergency department Via EMS with altered mental status, and required intubation. Apparently [place] is from [place] was in town for the [place] football game, and was reported to have taken stimulants, Ambien, and alcohol throughout the day. He was unable to give any history on arrival to the emergency department as he was obtunded and by himself. He was noted to be vomiting, and did not appear to be protecting his airway so he was emergently intubated. He did undergo CT head which was negative for acute intracranial findings. Acetaminophen and salicylates were negative. He did have significantly elevated blood alcohol but drug screen otherwise unremarkable. He now presents to the ICU for further management at this time. Allergies Allergy/AdvReac Type Severity Reaction Status Date / Time Unable to Assess Allergy Unverified 03/07/24 00:12 Home Medications Medication Instructions Recorded Confirmed Type Unobtainable 03/06/24 03/06/24 History Patient History Social History Smoking Status: Unknown if ever smoked Second Hand Exposure: No; Do You Dip or Chew Tobacco: No; Tobacco Cessation Education Requested by Patient: No (pt intubated) Hx Alcohol Use: Yes Alcohol type: beer Hx Substance Use: No Preferred Language: Bhutanese Communication Ability: Effective Blend Technician Required: No Beliefs That Will Affect Care: None Current Living Situation: Other Current Living Situation Comment: pt unable to answer Other Information That Helps Us Care for You: No Feels Safe at Home: Yes Safety Concerns: Feels Safe At This Time Assistive Devices: None Review of Systems Review of Systems: Unobtainable due to cognitive status and Unobtainable due to endotracheal tube Physical Exam Constitutional: average body habitus and + mechanically ventilated Eyes: PERRL, conjunctivae normal, anicteric sclerae ENMT: external ear and nose normal, oropharynx normal Neck: trachea midline, no thyromegaly Respiratory: normal respiratory effort, lungs clear to auscultation Cardiovascular: RRR, no murmur, no edema Heart Sounds: normal S1 and normal S2; no murmur Extremities: no edema Gastrointestinal (Abdomen): normal bowel sounds, soft, nontender, no hepatosplenomegaly Musculoskeletal: Head/Neck/Chest: normocephalic Extremities: extremities normal to inspection Skin: no rashes, warm and dry Neurologic: Exam limited due to sedation. PERRLA. Cough gag corneal intact Psychiatric: Unable to assess due to sedation/ET tube Genitourinary: Indwelling Mars catheter present, urine yellow clear Results & Data Results & Data Vital Signs (Past 12 Hours) Vital Signs Temp Pulse Pulse Resp BP BP Pulse Ox 03/07/24 00:09 122 H 20 100 03/07/24 00:03 36.9 C 110 H 20 148/92 H 100 03/06/24 23:30 88 18 138/89 99 03/06/24 23:21 85 18 99 03/06/24 23:20 87 18 127/93 98 03/06/24 23:10 87 18 143/95 H 97 03/06/24 23:00 91 H 18 119/82 96 03/06/24 22:54 36.9 C 03/06/24 22:51 90 18 94 03/06/24 22:50 91 H 18 118/77 94 03/06/24 22:40 91 H 18 120/79 95 03/06/24 22:30 90 18 120/80 95 03/06/24 22:21 91 H 18 114/81 94 03/06/24 22:15 91 H 18 94 03/06/24 22:10 90 18 120/80 94 03/06/24 22:00 93 H 18 95 03/06/24 22:00 93 H 18 120/81 95 03/06/24 21:50 92 H 18 128/83 96 03/06/24 21:42 108 H 21 97 03/06/24 21:40 100 H 18 153/109 H 95 03/06/24 21:30 98 H 18 150/100 H 97 03/06/24 21:21 94 H 18 98 03/06/24 21:10 95 H 18 151/100 H 98 03/06/24 21:00 102 H 18 153/103 H 95 03/06/24 20:50 99 H 18 141/103 H 96 03/06/24 20:36 107 H 18 138/99 95 03/06/24 20:36 146 H 22 96 03/06/24 20:30 110 H 18 145/107 H 95 03/06/24 20:29 111 H 18 95 03/06/24 20:27 146 H 96 03/06/24 20:18 155 H 20 210/136 H 96 03/06/24 20:18 93 03/06/24 20:16 118 H 18 166/132 H 96 03/06/24 20:16 94 03/06/24 20:13 101 H 03/06/24 20:09 108 H 18 124/81 99 03/06/24 20:08 36.9 C 101 H 16 124/81 99 O2 Del Method O2 Flow Rate FiO2 03/07/24 00:09 40 03/07/24 00:03 Mechanical Vent 03/06/24 23:30 Mechanical Vent 50 03/06/24 23:21 Mechanical Vent 50 03/06/24 23:20 Mechanical Vent 50 03/06/24 23:10 Mechanical Vent 50 03/06/24 23:00 Mechanical Vent 50 03/06/24 22:54 03/06/24 22:51 Mechanical Vent 50 03/06/24 22:50 Mechanical Vent 50 03/06/24 22:40 Mechanical Vent 50 03/06/24 22:30 Mechanical Vent 50 03/06/24 22:21 Mechanical Vent 50 03/06/24 22:15 Mechanical Vent 50 03/06/24 22:10 Mechanical Vent 50 03/06/24 22:00 Mechanical Vent 50 03/06/24 22:00 Mechanical Vent 50 03/06/24 21:50 Mechanical Vent 50 03/06/24 21:42 Mechanical Vent 50 03/06/24 21:40 Mechanical Vent 50 03/06/24 21:30 Mechanical Vent 50 03/06/24 21:21 Mechanical Vent 50 03/06/24 21:10 Mechanical Vent 50 03/06/24 21:00 Mechanical Vent 50 03/06/24 20:50 Mechanical Vent 50 03/06/24 20:36 Mechanical Vent 50 03/06/24 20:36 50 03/06/24 20:30 Mechanical Vent 50 03/06/24 20:29 Mechanical Vent 50 03/06/24 20:27 Mechanical Vent 50 03/06/24 20:18 Ambu-Bag 03/06/24 20:18 Nasal Cannula, Non-rebreather 4 03/06/24 20:16 Non-rebreather 15 03/06/24 20:16 03/06/24 20:13 03/06/24 20:09 Nasal Cannula 4 03/06/24 20:08 Nasal Cannula 4 Coding Level of Care Code 22678 CRITICAL CARE 1ST 30-74M Diagnoses Alcoholic intoxication F10.929 Complication of substance-induced condition: with unspecified complication Acute respiratory distress R06.03 Acute alteration in mental status R41.82 On mechanically assisted ventilation Z99.11 (1) Alcoholic intoxication Complication of substance-induced condition: with unspecified complication Qualified Code(s): F10.929 - Alcohol use, unspecified with intoxication, unspecified
--- NOTE | 2024-03-07 01:31 | XRay Report ---
Exam(s): XR KUB EXAM: XR Abdomen, 1 View CLINICAL HISTORY: OG verification. TECHNIQUE: Frontal supine view of the abdomen/pelvis. COMPARISON: No relevant prior studies available. FINDINGS: Orogastric tube tip in left upper quadrant approximately 10 cm beyond the level of the esophageal junction. IMPRESSION: Orogastric tube tip in the stomach. Electronically signed by: Alexei Camarillo M.D. 03/07/24 01:30 AM
[2024-03-07] MEDS ORDERED: STAT IV Infusion **Titration per Protocol STA (03:39)
[2024-03-07] MEDS ORDERED: fentaNYL BOLUS from BAG IV PRN (03:39)
[2024-03-07] MEDS: fentaNYL citrate 2,500 MCG/250 ML BAG IV SCH (03:52)
[2024-03-07 04:18] LABS: Basophils # (auto) 0.06 K/uL (0.00-0.20); Basophils % (auto) 0.6 %; Eosinophils # (auto) 0.03 K/uL (0.00-0.50); Eosinophils % (auto) 0.3 %; Hematocrit (blood only) 46.9 % (42.0-52.0); Hemoglobin 16.6 g/dl (14.0-18.0); Immature Granulocytes # (auto) 0.06 K/uL (0.01-0.20); Immature Granulocytes % (auto) 0.6 %; Lymphocytes # (auto) 2.83 K/uL (1.20-3.40); Lymphocytes % (auto) 27.4 %; Mean Corpuscular Hemoglobin 30.3 pg (25.0-34.0); Mean Corpuscular Hgb Conc 35.4 g/dL (32.0-36.0); Mean Corpuscular Volume 85.7 fL (80.0-100.0); Mean Platelet Volume 10.2 fL (9.4-12.4); Monocytes # (auto) 0.68 K/uL (0.11-0.59); Monocytes % (auto) 6.6 %; Neutrophils # (auto) 6.65 K/uL (1.40-6.50); Neutrophils % (auto) 64.5 %; Platelet Count 243 K/uL (130-400); RDW Coefficient of Variation 11.8 % (11.5-14.5); Red Blood Count 5.47 M/uL (4.70-6.10); White Blood Count 10.31 K/ul (4.8-10.8)
[2024-03-07 04:32] LABS: BUN Creatinine Ratio 10.3 (10-20); Creatinine Clr Calc Pharmacy 133.7 ml/min; Magnesium 1.9 mg/dl (1.7-2.4); Phosphorus 4.3 mg/dl (2.5-4.9)
[2024-03-07 05:13] LABS: iSTAT Allen Test Pass; iSTAT Art Bld Gas pCO2 Correct 45 mmHg (35-46); iSTAT Art Bld Gas pH Corrected 7.368 (7.35-7.45); iSTAT Arterial Blood Gas HCO3 26 meg/L (19-24); iSTAT Arterial Blood Gas pCO2 44 mmHg (35-46); iSTAT Arterial Blood Gas pH 7.38 (7.35-7.45); iSTAT Arterial Blood Gas pO2 100 mmHg (80-95); iSTAT Arterial Blood Gas pO2 C 104; iSTAT Carbon Dioxide 27 mmol/L (24-31); iSTAT FiO2 30 %; iSTAT Hematocrit 47 % (42-52); iSTAT Potassium 3.9 mmol/L (3.3-5.0); iSTAT Sample Type Arterial; iSTAT Site L Brachial; iSTAT Sodium 142 mmol/L (135-144); iSTAT SpO2 96
[2024-03-07] MEDS: AMPICILLIN/SULBACTAM SOD 3,000 MG/100 ML BAG IV SCH (06:02)
--- NOTE | 2024-03-07 07:31 | Hospitalist Progress Note ---
Date of Service March 07, 2024 Assessment & Plan (1) Respiratory failure with hypercapnia: Plan: Mr. Chen is a 44 year old gentleman with unknown medical history at this time who presented to ED on 03/06 due to acute encephalopathy after alcohol intoxication. Patient intubated for airway protection and concern for aspiration pneumonia. Patient afebrile, extubated, no leukocytosis noted, no respiratory distress. #Acute resp failure 2/2 inability to maintain airway due to encephalopathy #Mechanical ventilation, now extubated concern for possible aspiration 2/2 intractable vomiting reported, no signs of notable hypoxia/hypercapnia Intubated for airway protection 03/07 Remains in ICU for vent management Unasyn empirically for aspiration--discontinue given no WBC/fevers/distress Extubation protocol per ICU, likely down grade this afternoon #Acute Alcohol withdrawal #Alcohol intoxication on admission hypertensive and tachycardic, notable intake of 3-4 beers at minimum daily with episodic binge reported Agrees to Gabapentin taper Ativan prn AWSS Continue on tele #Prior tobacco use Nicotine patch ordered Discuss patient not to be discharged today, but will consider in am contingent on IV requirements for ativan given desire to "drive self to airport" DVT [facility] Admission and Anticipated Discharge Date Admission Date: March 06, 2024 Subjective Initially evaluated while intubated--then once more at bedside when extubated Patient reports feeling frustrated....he states he "took a pill [he] thought was adderall" then only drank beer He does note nightly drinking 3-4 beers a night and then sometimes an 18pack over the weekends. He cannot quantify the amount he drank yesterday but doesnt remember it being "that much." He denies any other medical history, he reports previously smoking over a year ago but uses patches now He denies any other supplements, illicit uses outside of "occasional pills" or prescribed medications Physical Exam Constitutional: WD/WN, vitals as above Respiratory: normal respiratory effort, lungs clear to auscultation Cardiovascular: tachycardic, sinus on tele Gastrointestinal (Abdomen): normal bowel sounds, soft, nontender, no hepatosplenomegaly Results & Data Results & Data Vital Signs (Past 12 Hours) Vital Signs Temp Pulse Pulse Resp BP BP Pulse Ox 03/07/24 06:12 37.5 C 87 16 110/68 97 03/07/24 05:09 37.5 C 95 H 18 104/62 96 03/07/24 04:18 37.5 C 100 H 18 122/71 95 03/07/24 04:00 03/07/24 03:55 116 H 24 96 03/07/24 03:00 37.2 C 104 H 18 122/69 95 03/07/24 02:00 37.0 C 99 H 18 125/70 94 03/07/24 01:00 36.8 C 100 H 18 117/70 95 03/07/24 00:09 36.5 C 127 H 20 148/92 H 100 03/07/24 00:09 122 H 20 100 03/07/24 00:03 36.9 C 110 H 20 148/92 H 100 03/07/24 00:00 03/07/24 00:00 03/07/24 00:00 128 H 03/06/24 23:54 03/06/24 23:30 88 18 138/89 99 03/06/24 23:21 85 18 99 03/06/24 23:20 87 18 127/93 98 03/06/24 23:10 87 18 143/95 H 97 03/06/24 23:00 91 H 18 119/82 96 03/06/24 22:54 36.9 C 03/06/24 22:51 90 18 94 03/06/24 22:50 91 H 18 118/77 94 03/06/24 22:40 91 H 18 120/79 95 03/06/24 22:30 90 18 120/80 95 03/06/24 22:21 91 H 18 114/81 94 03/06/24 22:15 91 H 18 94 03/06/24 22:10 90 18 120/80 94 03/06/24 22:00 93 H 18 95 03/06/24 22:00 93 H 18 120/81 95 03/06/24 21:50 92 H 18 128/83 96 03/06/24 21:42 108 H 21 97 03/06/24 21:40 100 H 18 153/109 H 95 03/06/24 21:30 98 H 18 150/100 H 97 03/06/24 21:21 94 H 18 98 03/06/24 21:10 95 H 18 151/100 H 98 03/06/24 21:00 102 H 18 153/103 H 95 03/06/24 20:50 99 H 18 141/103 H 96 03/06/24 20:36 107 H 18 138/99 95 03/06/24 20:36 146 H 22 96 03/06/24 20:30 110 H 18 145/107 H 95 03/06/24 20:29 111 H 18 95 03/06/24 20:27 146 H 96 03/06/24 20:18 155 H 20 210/136 H 96 03/06/24 20:18 93 03/06/24 20:16 118 H 18 166/132 H 96 03/06/24 20:16 94 03/06/24 20:13 101 H 03/06/24 20:09 108 H 18 124/81 99 03/06/24 20:08 36.9 C 101 H 16 124/81 99 O2 Del Method O2 Del Method O2 Flow Rate O2 Flow Rate FiO2 03/07/24 06:12 03/07/24 05:09 03/07/24 04:18 03/07/24 04:00 40 03/07/24 03:55 30 03/07/24 03:00 03/07/24 02:00 03/07/24 01:00 03/07/24 00:09 03/07/24 00:09 40 03/07/24 00:03 Mechanical Vent 03/07/24 00:00 Mechanical Vent 30 03/07/24 00:00 30 03/07/24 00:00 03/06/24 23:54 Mechanical Vent 30 03/06/24 23:30 Mechanical Vent 50 03/06/24 23:21 Mechanical Vent 50 03/06/24 23:20 Mechanical Vent 50 03/06/24 23:10 Mechanical Vent 50 03/06/24 23:00 Mechanical Vent 50 03/06/24 22:54 03/06/24 22:51 Mechanical Vent 50 03/06/24 22:50 Mechanical Vent 50 03/06/24 22:40 Mechanical Vent 50 03/06/24 22:30 Mechanical Vent 50 03/06/24 22:21 Mechanical Vent 50 03/06/24 22:15 Mechanical Vent 50 03/06/24 22:10 Mechanical Vent 50 03/06/24 22:00 Mechanical Vent 50 03/06/24 22:00 Mechanical Vent 50 03/06/24 21:50 Mechanical Vent 50 03/06/24 21:42 Mechanical Vent 50 03/06/24 21:40 Mechanical Vent 50 03/06/24 21:30 Mechanical Vent 50 03/06/24 21:21 Mechanical Vent 50 03/06/24 21:10 Mechanical Vent 50 03/06/24 21:00 Mechanical Vent 50 03/06/24 20:50 Mechanical Vent 50 03/06/24 20:36 Mechanical Vent 50 03/06/24 20:36 50 03/06/24 20:30 Mechanical Vent 50 03/06/24 20:29 Mechanical Vent 50 03/06/24 20:27 Mechanical Vent 50 03/06/24 20:18 Ambu-Bag 03/06/24 20:18 Nasal Cannula, Non-rebreather 4 03/06/24 20:16 Non-rebreather 15 03/06/24 20:16 03/06/24 20:13 03/06/24 20:09 Nasal Cannula 4 03/06/24 20:08 Nasal Cannula 4 Laboratory Results Short CBC 03/06/24 03/07/24 Range/Units 20:09 03:49 WBC 7.95 10.31 (4.8-10.8) K/ul Hgb 17.9 16.6 (14.0-18.0) g/dl Hct 49.7 46.9 (42.0-52.0) % Plt Count 252 243 (130-400) K/uL BMP 03/06/24 03/07/24 20:09 03:49 Sodium 142 141 Potassium 3.7 4.0 Chloride 104 105 Carbon Dioxide 27 25 BUN 10 9 Creatinine 0.95 0.87 Glucose 117 H 99 Calcium 9.7 9.0 Cardiac Enzymes 03/06/24 03/07/24 Range/Units 20:09 03:49 Total Creatine Kinase 322 H 239 H (30-223) U/L Liver Function 03/06/24 Range/Units 20:09 Total Bilirubin 0.4 (0.2-1.0) mg/dl AST 28 (13-39) U/L ALT 26 (7-52) U/L Alkaline Phosphatase 68 (34-104) U/L Albumin 4.9 (3.4-5.0) gm/dl Urine 03/06/24 Range/Units 20:09 Urine Color Yellow Urine Appearance Clear (Clear) Urine pH 5.5 (4.5-7.5) Ur Specific Stanton 1.006 (1.000-1.030) Urine Protein Negative (Negative) Urine Glucose (UA) Negative (Negative) Medications Administered Home Medications Medication Instructions Recorded Confirmed Last Taken Unobtainable 03/06/24 03/06/24 Unknown Active Medications Generic Name Dose Route Start Last Admin Trade Name Freq PRN Reason Stop Dose Admin Propofol 1,000 mg in 100 mls @ 32.94 mls/hr 03/06/24 20:15 03/07/24 06:53 Diprivan IV 03/09/24 20:14 50 mcg/kg/min .Q3H3M SHAINA 32.9 mls/hr Titration Protocol 50 MCG/KG/MIN Lactated Ringer's 1,000 mls @ 80 mls/hr 03/06/24 23:05 03/06/24 23:30 Lr IV 03/07/24 11:34 80 mls/hr .[id number] ONE Administration Ampicillin Sodium/Sulbactam Sodium 3,000 mg in 100 mls @ 200 mls/hr 03/07/24 05:00 03/07/24 06:51 Unasyn IV 03/12/24 04:59 Infused Q6H SHAINA Infusion Fentanyl Citrate 2,500 mcg in 250 mls @ 7.5 mls/hr 03/07/24 03:45 03/07/24 06:53 Fentanyl Citrate IV 03/21/24 03:44 75 mcg/hr .[id number] SHAINA 7.5 mls/hr Titration Protocol 75 MCG/HR Miscellaneous 1 each 03/07/24 00:00 03/07/24 06:29 Icu Protocol For Hyperglycemia N/A 03/09/24 00:00 1 each Q6 SHAINA Administration Propofol 20 mg 03/06/24 20:08 03/06/24 21:39 Propofol Bolus From Bag IV 03/09/24 20:07 20 mg Q5M PRN Administration Sedation
[2024-03-07 07:35] LABS: Estimated Average Glucose 88 mg/dl; Hemoglobin A1C 4.7 % (4.5-5.6)
--- NOTE | 2024-03-07 07:41 | XRay Report ---
EXAM: XR chest 1V portable CLINICAL HISTORY: resp failure tgb INPATIENT TECHNIQUE: X-ray image of the chest obtained in 1 frontal projection. COMPARISON: No prior studies available for comparison. FINDINGS: Pulmonary Parenchyma: Prominent bilateral parahilar markings. No evidence of consolidation, collapse, or focal opacities. No pulmonary nodules identified. No evidence of pleural effusion or pleural thickening. Heart and Mediastinum: Heart size aappears enlarged. No mediastinal widening or masses. No hilar or mediastinal lymphadenopathy. Bony Thorax: Bony thorax appears intact without fractures or deformities. Soft Tissues: Soft tissues overlying the chest wall are unremarkable. ETT with tip ~5.6 cm above nico. IMPRESSION: 1. Prominent bilateral parahilar markings likely congestion. 2. Cardiomegaly. 3. ETT with tip ~5.6 cm above nico. Electronically signed by Sam Pang 03-07-2024 07:40 AM
--- NOTE | 2024-03-07 07:55 | Critical Care Progress Note ---
Date of Service March 07, 2024 Assessment & Plan (1) Alcoholic intoxication: Plan: . (2) Acute respiratory distress: (3) Acute alteration in mental status: (4) On mechanically assisted ventilation: Plan Reason Critically Ill: 44-year-old male presents to the ICU following emergent intubation in the ER due to altered mental status and vomiting, with patient not protecting airway. Patient appears to be intoxicated with alcohol Neuro - -- Metabolic encephalopathy Likely secondary to alcohol intoxication CT head negative for acute intracranial findings. UDS negative although EMS did report patient had possibly taken Ambien and stimulants throughout the day. Acetaminophen and salicylates negative --History of heavy alcohol use Drinks 4-6 beers on a daily basis 18 packs on the weekend Cardiac - Currently hemodynamically stable, normal sinus rhythm. Continuous monitor on telemetry Respiratory - Mechanical ventilation For airway protection Keep RASS -1 Daily sedation holidays and SBT's Chlorhexidine mouthwash GI - N.p.o. for now RENAL/LYTES - -- Monitor BUNs/creatinine Avoid nephrotoxic medication Rhabdomyolysis Mildly elevated CPK Continue with IV fluids - Foleystrict I's and O's ENDO - ICU hyperglycemia protocol HEME - H&H stable, monitor routine CBC ID - Continue with empiric Unasyn for pulmonary coverage following possible aspiration. Trend fever curve --Prophylaxis VTE: Lovenox GI: Pepcid Lines: Peripheral Diet: N.p.o. Plan: In/out: +603, urine output 875 Patient is spiking fever, start him on Tylenol There is a possibility he might have aspirated, will recommend to give amoxicillin/clavulanate acid for total of 7 days on discharge Continue with Zosyn for the time being Magnesium being replaced Trial of extubation today CIWA protocol given history of heavy alcohol use Case discussed with primary team I have personally spent 38 minutes of critical care time in the direct management of this patient. This is a life/limb threatening event. This includes time spent evaluating patient, direct bedside care, chart review, placing orders, interpretation of diagnostic studies, discussion with consultants, patient, and family members, as well as other required patient management activities. This time is exclusive of all separately billable procedures, and teaching time and separate from and in addition to any other critical care service time. Thank you for allowing us to participate in the care of this patient. Please refer to my attending physician's documentation for any further recommendations Admission and Anticipated Discharge Date Admission Date: March 06, 2024 Subjective Patient seen and examined at bedside. No acute distress Was on fentanyl 100 and propofol 50 at the time of examination He was RASS -1, breathing over the way Asking to remove the tube Denied any headache, no chest pain, no abdominal pain Spiking low-grade fever Review of Systems 2 Review of Systems: All systems reviewed & are unremarkable except as noted in Subjective and Unobtainable due to endotracheal tube Physical Exam 2 Physical Exam: Constitutional: No acute distress HEENT: EOMI, PERRLA Respiratory system: Decreased air entry bilaterally, no wheeze, no rhonchi, mild crackles bilateral lower lobes CVS: S1-S2 positive, no murmurs or gallops Abdomen: Soft, nontender, nondistended, positive bowel sounds x4 Extremities: +2 pulses bilaterally radialis/ dorsalis pedis, no cyanosis, no edema Neuro: RASS -1, moving all extremities and answering the questions appropriately Psych: Unable to assess G/U: Positive Mars Skin: no rashes, warm and dry Lymphatic: no cervical or axillary lymphadenopathy Results & Data Results & Data Vital Signs (Past 12 Hours) Vital Signs Temp Pulse Pulse Resp BP BP Pulse Ox 03/07/24 07:24 97 H 18 96 03/07/24 06:12 37.5 C 87 16 110/68 97 03/07/24 05:09 37.5 C 95 H 18 104/62 96 03/07/24 04:18 37.5 C 100 H 18 122/71 95 03/07/24 04:00 03/07/24 03:55 116 H 24 96 03/07/24 03:00 37.2 C 104 H 18 122/69 95 03/07/24 02:00 37.0 C 99 H 18 125/70 94 03/07/24 01:00 36.8 C 100 H 18 117/70 95 03/07/24 00:09 36.5 C 127 H 20 148/92 H 100 03/07/24 00:09 122 H 20 100 03/07/24 00:03 36.9 C 110 H 20 148/92 H 100 03/07/24 00:00 03/07/24 00:00 03/07/24 00:00 128 H 03/06/24 23:54 03/06/24 23:30 88 18 138/89 99 03/06/24 23:21 85 18 99 03/06/24 23:20 87 18 127/93 98 03/06/24 23:10 87 18 143/95 H 97 03/06/24 23:00 91 H 18 119/82 96 03/06/24 22:54 36.9 C 03/06/24 22:51 90 18 94 03/06/24 22:50 91 H 18 118/77 94 03/06/24 22:40 91 H 18 120/79 95 03/06/24 22:30 90 18 120/80 95 03/06/24 22:21 91 H 18 114/81 94 03/06/24 22:15 91 H 18 94 03/06/24 22:10 90 18 120/80 94 03/06/24 22:00 93 H 18 95 03/06/24 22:00 93 H 18 120/81 95 03/06/24 21:50 92 H 18 128/83 96 03/06/24 21:42 108 H 21 97 03/06/24 21:40 100 H 18 153/109 H 95 03/06/24 21:30 98 H 18 150/100 H 97 03/06/24 21:21 94 H 18 98 03/06/24 21:10 95 H 18 151/100 H 98 03/06/24 21:00 102 H 18 153/103 H 95 03/06/24 20:50 99 H 18 141/103 H 96 03/06/24 20:36 107 H 18 138/99 95 03/06/24 20:36 146 H 22 96 03/06/24 20:30 110 H 18 145/107 H 95 03/06/24 20:29 111 H 18 95 03/06/24 20:27 146 H 96 03/06/24 20:18 155 H 20 210/136 H 96 03/06/24 20:18 93 03/06/24 20:16 118 H 18 166/132 H 96 03/06/24 20:16 94 03/06/24 20:13 101 H 03/06/24 20:09 108 H 18 124/81 99 03/06/24 20:08 36.9 C 101 H 16 124/81 99 O2 Del Method O2 Del Method O2 Flow Rate O2 Flow Rate FiO2 03/07/24 07:24 30 03/07/24 06:12 03/07/24 05:09 03/07/24 04:18 03/07/24 04:00 40 03/07/24 03:55 30 03/07/24 03:00 03/07/24 02:00 03/07/24 01:00 03/07/24 00:09 03/07/24 00:09 40 03/07/24 00:03 Mechanical Vent 03/07/24 00:00 Mechanical Vent 30 03/07/24 00:00 30 03/07/24 00:00 03/06/24 23:54 Mechanical Vent 30 03/06/24 23:30 Mechanical Vent 50 03/06/24 23:21 Mechanical Vent 50 03/06/24 23:20 Mechanical Vent 50 03/06/24 23:10 Mechanical Vent 50 03/06/24 23:00 Mechanical Vent 50 03/06/24 22:54 03/06/24 22:51 Mechanical Vent 50 03/06/24 22:50 Mechanical Vent 50 03/06/24 22:40 Mechanical Vent 50 03/06/24 22:30 Mechanical Vent 50 03/06/24 22:21 Mechanical Vent 50 03/06/24 22:15 Mechanical Vent 50 03/06/24 22:10 Mechanical Vent 50 03/06/24 22:00 Mechanical Vent 50 03/06/24 22:00 Mechanical Vent 50 03/06/24 21:50 Mechanical Vent 50 03/06/24 21:42 Mechanical Vent 50 03/06/24 21:40 Mechanical Vent 50 03/06/24 21:30 Mechanical Vent 50 03/06/24 21:21 Mechanical Vent 50 03/06/24 21:10 Mechanical Vent 50 03/06/24 21:00 Mechanical Vent 50 03/06/24 20:50 Mechanical Vent 50 03/06/24 20:36 Mechanical Vent 50 03/06/24 20:36 50 03/06/24 20:30 Mechanical Vent 50 03/06/24 20:29 Mechanical Vent 50 03/06/24 20:27 Mechanical Vent 50 03/06/24 20:18 Ambu-Bag 03/06/24 20:18 Nasal Cannula, Non-rebreather 4 03/06/24 20:16 Non-rebreather 15 03/06/24 20:16 03/06/24 20:13 03/06/24 20:09 Nasal Cannula 4 03/06/24 20:08 Nasal Cannula 4 Laboratory Results 03/07/24 03:49 03/07/24 03:49 Coding Level of Care Code 42914 CRITICAL CARE 1ST 30-74M Diagnoses Alcoholic intoxication F10.929 Complication of substance-induced condition: with unspecified complication Acute respiratory distress R06.03 Acute alteration in mental status R41.82 On mechanically assisted ventilation Z99.11 (1) Alcoholic intoxication Complication of substance-induced condition: with unspecified complication Qualified Code(s): F10.929 - Alcohol use, unspecified with intoxication, unspecified
[2024-03-07] MEDS: ACETAMINOPHEN 325 MG TAB PO PRN (09:14)
[2024-03-07] MEDS: MAGNESIUM OXIDE 400 MG TAB PO SCH (09:14)
[2024-03-07] MEDS: ENOXAPARIN INJ 40 MG/0.4 ML SYR SQ SCH (09:19)
[2024-03-07] MEDS: FAMOTIDINE 20MG IV PUSH 20 MG/5 ML SYR IV SCH (09:19)
[2024-03-07] MEDS ORDERED: LORazepam 2 MG/1 ML VIAL IV PRN (10:08)
[2024-03-07] MEDS ORDERED: GABAPENTIN 1200MG ALCOHOL WITHDRAWAL LOAD PO STA (10:08)
[2024-03-07] MEDS: GABAPENTIN 600 MG TAB PO ONE (10:47)
[2024-03-07] MEDS: FOLIC ACID 1 MG TAB PO SCH (10:47)
[2024-03-07] MEDS: THIAMINE HCL 100 MG TAB PO SCH (10:47)
[2024-03-07] MEDS: NICOTINE 7 MG/24 HR TDSY TD SCH (10:47)
[2024-03-07] MEDS: AMOXICILLIN/CLAVULANATE 875 MG TAB PO SCH (16:52)
[2024-03-07] MEDS: GABAPENTIN 600 MG TAB PO SCH (16:53)
[2024-03-08 04:16] LABS: Hematocrit (blood only) 46.5 % (42.0-52.0); Hemoglobin 16.4 g/dl (14.0-18.0); Mean Corpuscular Hemoglobin 30.6 pg (25.0-34.0); Mean Corpuscular Hgb Conc 35.3 g/dL (32.0-36.0); Mean Corpuscular Volume 86.8 fL (80.0-100.0); Mean Platelet Volume 10.4 fL (9.4-12.4); Platelet Count 204 K/uL (130-400); RDW Coefficient of Variation 11.8 % (11.5-14.5); RDW Standard Deviation 37.2 fL (36.4-46.3); Red Blood Count 5.36 M/uL (4.70-6.10); White Blood Count 10.71 K/ul (4.8-10.8)
[2024-03-08 05:17] LABS: Albumin Globulin Ratio 1.8 (0.9-2); Albumin Level 4.1 gm/dl (3.4-5.0); Bilirubin,Total 1.4 mg/dl (0.2-1.0); Calcium 9.2 mg/dl (8.6-10.3); Creatinine Clr Calc Pharmacy 125.6 ml/min; Globulin 2.3 gm/dl (2.5-4.0); Potassium 3.9 mmol/L (3.5-5.1); Total Protein 6.4 gm/dl (6.0-8.3)
[2024-03-08] MEDS: GABAPENTIN 600 MG TAB PO SCH (06:09)
--- NOTE | 2024-03-08 07:45 | Discharge Summary ---
Discharge Summary Date of Service March 08, 2024 Principal Dx & Hospital Course #1 = Principal Diagnosis (1) Respiratory failure with hypercapnia: Mr. Chen is a 44 year old gentleman with unknown medical history at this time who presented to ED on 03/06 due to acute encephalopathy after alcohol intoxication. Patient intubated for airway protection and concern for aspiration pneumonia. Patient afebrile, extubated, no leukocytosis noted, no respiratory distress. Patient remained stable on gabapentin taper and after disucssion with pulm a course of PO abx for aspiration. Patient did not require any IV medications for withdrawal overnight. Patient on room air and no resp distress. #Acute resp failure 2/2 inability to maintain airway due to encephalopathy #Mechanical ventilation, now extubated concern for possible aspiration 2/2 intractable vomiting reported, no signs of notable hypoxia/hypercapnia Intubated for airway protection 03/07 Extubated 03/07. No hypoxia Transitioned to po Augmentin #Acute Alcohol withdrawal #Alcohol intoxication on admission hypertensive and tachycardic, notable intake of 3-4 beers at minimum daily with episodic binge reported Agrees to Gabapentin taper Continue as an op #Prior tobacco use Nicotine patch ordered Notes For Next Care Provider Medication Changes From Visit Gabapentin taper to complete Augmentin x 5 days Admission HPI Per Admitting Provider History obtained from ED provider, patient friend, and records. Limited history from patient secondary to intubated state. Patient is a resident of [facility] who is in town this weekend with friends to watch the football game. Patient has been drinking a lot of alcohol with his buddies since arriving in town yesterday. Patient friend unaware of alcohol abuse history. Reported Ambien and stimulant use. Tonight, patient noted to be obtunded. Subsequent emesis and hypoxemia. Patient brought to ER for evaluation. Transient hypoxemia with concern for aspiration as per ED provider Patient subsequently intubated. 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 Admission Exam Per Admitting Provider GENERAL: Sedated, intubated, obese, no respiratory distress SKIN: Normal color, warm HEENT: Alopecia, pink palpebral conjunctivae, no ptosis, dry buccal mucosa, ET in place NECK : Supple, no tenderness CHEST : Decreased breath sounds, no tenderness HEART : RRR, no obvious murmurs ABDOMEN: Some distention, nontender EXTREMITIES : No LE swelling/tenderness, no other conspicuous deformities noted NEUROLOGIC : Sedated, no facial asymmetry, no other gross focality Discharge Exam Constitutional WD/WN, vitals as above Respiratory normal respiratory effort, lungs clear to auscultation Gastrointestinal (Abdomen) normal bowel sounds, soft, nontender, no hepatosplenomegaly Updated Medication List Medication Instructions Recorded Confirmed Type amoxicillin 875 mg-potassium 1 tab PO BIDM 6 days #12 tabs 03/08/24 Rx clavulanate 125 mg tablet gabapentin 600 mg tablet See Rx Instructions .Route 03/08/24 Rx .COMPLEX #5 tabs Hospital Stay Data Consultations 03/06/24 21:55 ED Decision to Admit Stat 03/06/24 23:54 Consult Health Analyst Routine Diagnostic Imagining Performed 03/06/24 20:08 CT head/brain wo con Stat Pending Results Patient Have Any Pending Studies at Discharge: No Discharge Instructions Given to Patient (Per Discharging Provider) You were admitted for alcohol intoxication and intubated given concern for aspiration, or vomit going into your lungs. You were started on a Gabapentin taper to aid in alcohol withdrawal. Please take the following: Gabapentin 600mg, 5 tablets Today: Take 1 tablet with lunch then 1 tablet this evening. Tomorrow: Take 1 tablet with breakfast, then 1 tablet in the evening Following Day: Take final tablet in morning. You were also started on a antibiotic to prevent pneumonia: Augmentin 1 tablet, two times a day until course complete. Your next dose is this evening. Total Time Total Time Spent Total Time Spent (In Minutes): 45
[2024-03-08 08:00] VITALS: BP 151/87; RESP 18; TEMP 98.1; O2SAT 99
[2024-03-08 08:03] VITALS: PULSE 75
[2024-03-09] MEDS ORDERED: GABAPENTIN 600 MG TAB PO SCH (10:15)
--- NOTE | 2024-03-09 11:58 | Electrocardiogram Report ---
Test Reason : Blood Pressure : */* mmHG Vent. Rate : 160 BPM Atrial Rate : 160 BPM P-R Int : 88 ms QRS Dur : 94 ms QT Int : 268 ms P-R-T Axes : 35 4 75 degrees QTcB Int : 437 ms Sinus tachycardia with short OR Nonspecific ST and T wave abnormality Abnormal ECG No previous ECGs available Confirmed by Leoncio Estevez ([id number]) on 03/09/2024 11:58:20 AM Referred By: REFERRED SELF Confirmed By: Leoncio Estevez
[2024-03-10] MEDS ORDERED: GABAPENTIN 600 MG TAB PO SCH (22:15)
== END 2024-03-08 10:11 | disposition home or self-care (01) | DRG 208 ==
LOC: ED 20:04 → 1E 22:35 → SUATTDRO 22:35 → 1E 22:54